=== PATIENT | female | born 2000 | race Caucasian/White ===

== ENCOUNTER 2019-01-31 08:52 | Emergency (ER) | payer OTHER ==
[~2019-01-31] VITALS: Ht 165.1 cm; Wt 80.1 kg
[2019-01-31] MEDS ORDERED: MULTTAB20 PO (09:11)
[2019-01-31] MEDS ORDERED: PANTOPRAZOLE 40MG INJ (PROTONIX) (C9113) IV ONE (09:15)
[2019-01-31] MEDS ORDERED: GI COCKTAIL 50ML BTL(HYOSCYAMINE/MAALOX/LIDOCAINE VISCOUS)(1:3:1) PO ONE (09:15)
[2019-01-31 09:37] LABS: BASO % 0.2 % (0.0-1.0); EOS % 0.4 % (0.0-3.0); HEMATOCRIT 39.5 % (36.0-47.0); HEMOGLOBIN 13.4 g/dl (12.0-15.5); LYMPH # 0.8 10^3/uL (1.5-6.5); MEAN CORPUSCULAR HGB CONC 33.9 g/dl (32.0-36.5); MEAN CORPUSCULAR VOLUME 88.6 fl (80.0-96.0); MONO # 0.7 10^3/uL (0.0-0.8); NEUTROPHILS # 6.6 10^3/uL (1.8-7.7); PLATELET COUNT, AUTOMATED 246 10^3/uL (150-450); RED BLOOD COUNT 4.46 10^6/uL (4.00-5.40); WHITE BLOOD COUNT 8.2 10^3/uL (4.0-10.0)
[2019-01-31 09:54] LABS: INR 0.98; PROTHROMBIN TIME 13.1 SECONDS (12.1-14.4)
[2019-01-31 09:55] LABS: PARTIAL THROMBOPLASTIN TIME 26.9 SECONDS (25.4-37.6)
[2019-01-31 09:57] LABS: D-DIMER QUANT 450.71 ng/ml (<500)
--- NOTE | 2019-01-31 10:11 | REP ---
Bilateral lower extremity Duplex Doppler venous ultrasound: Real time compression and duplex Doppler interrogation of the bilateral lower extremity deep venous system is performed. Bilaterally, the common femoral, superficial femoral and popliteal veins are fully compressible with transducer pressure and demonstrate normal spontaneous and phasic flow, without evidence of deep venous thrombosis. Impression: No evidence of deep venous thrombosis of the bilateral lower extremity femoral popliteal venous system. Electronically Signed by Gary Moe MD 01/31/2019 10:02 A
--- NOTE | 2019-01-31 10:16 | REP ---
OB ULTRASOUND: Real-time sonographic evaluation of the gravid uterus performed. There is a single living intrauterine gestation. The estimated gestational age is 8 weeks 3 days based on LMP, EDC 09/09/2019. Today's crown-rump length measurement of 21 mm is at the 72nd percentile indicating appropriate growth. heart rate 169 beats per minute. There is no subchorionic hemorrhage. No maternal adnexal region abnormality is seen. There is no evidence of ovarian torsion. Electronically Signed by Gary Moe MD 01/31/2019 04:17 P
[2019-01-31 10:31] LABS: ALT/SGPT 16 U/L (12-78); BILIRUBIN,DIRECT < 0.1 MG/DL (0.0-0.2); BILIRUBIN,TOTAL 0.3 MG/DL (0.2-1.0); BLOOD UREA NITROGEN 7 MG/DL (7-18); CALCIUM LEVEL 9.1 MG/DL (8.5-10.1); CARBON DIOXIDE LEVEL 22 MEQ/L (21-32); CHLORIDE LEVEL 101 MEQ/L (98-107); CK-MB VALUE MASS < 1.0 NG/ML (<3.6); CPK CREATINE PHOSPHOKINASE 49 U/L (26-192); CREATININE FOR GFR 0.65 MG/DL (0.55-1.30); GLOMERULAR FILTRATION RATE > 60.0 (>60); GLUCOSE, FASTING 87 MG/DL (70-100); HCG, SERUM QUANTITATIVE 70660 MIU/ML; LIPASE 58 U/L (73-393); MB/CK RELATIVE INDEX 2.04 (< OR =4); POTASSIUM SERUM 3.5 MEQ/L (3.5-5.1); SODIUM LEVEL 133 MEQ/L (136-145); TOTAL PROTEIN 7.8 GM/DL (6.4-8.2); TROPONIN I < 0.02 NG/ML (< 0.10)
[2019-01-31] MEDS ORDERED: ACETAMINOPHEN TAB 650MG DOSE (2X325MG) PO ONE (12:00)
[2019-01-31] MEDS ORDERED: REGL10TA6 PO (13:07)
[2019-01-31 13:30] VITALS: BP 97/58
--- NOTE | 2019-02-01 07:14 | ECGEPIP ---
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
== END 2019-01-31 13:39 | disposition home or self-care (01) ==
LOC: M ED 08:52
DX: O99.89 Other specified diseases and conditions complicating pregnancy, childbirth and the puerperium (principal); R07.9 Chest pain, unspecified; R06.02 Shortness of breath; R11.2 Nausea with vomiting, unspecified; Z3A.08 8 weeks gestation of pregnancy
CPT/HCPCS: 76801; 80048; 80076; 82550; 82553; 83690; 84484; 84702; 85025; 85379; 85610; 85730; 86850; 86900; 86901; 93005; 93041; 93970; 93976; 94760; 96374; 99285; C9113

== ENCOUNTER 2019-08-02 18:13 | Outpatient (CLI) | payer OTHER ==
[~2019-08-02] VITALS: Ht 165.1 cm; Wt 105.3 kg
[~2019-08-02 18:13] MED LIST: MULTTAB20 PO; REGL10TA6 PO
[2019-08-02 18:40] VITALS: BP 125/75
[2019-08-02] MEDS ORDERED: CALC500C27 PO (18:44)
[2019-08-02] MEDS ORDERED: ZOFR4TAB16 PO (18:44)
[2019-08-02 18:50] VITALS: BP 125/75
--- NOTE | 2019-08-02 20:08 | IPNPDOC ---
Text Note Date of Service The patient was seen on 08/02/19. NOTE patient is a 19 yo G1 @34+4wks gestation presents with concern for right upper back pain x many days. denies ctx/lof/vb. +FM. vitals: norml NAD back: palpable knot at paraspinus muscle on right side causing tenderness. worse with bending forward and improves with bending backwards abd: nd, soft, nt, gravid le: bilateral symmetrical non pitting edema. fht: 145/mod angel/pos accel/no decel toco: quiet a/p patient at 34+4wks gestation with back pain, musculoskeletal related. discussed with patient regarding stretching, warm compress. patient declined physical therapy consult. return precautions given. f/u with clinic as scheduled. DO cecy VS,Ronnie, I+O VS, Ronnie, I+O Vital Signs Date Time Temp Pulse Resp B/P (MAP) Pulse Ox O2 Delivery O2 Flow Rate FiO2 08/02/19 18:50 98.4 91 18 125/75 (92) FERNIE PETERS DO Aug 02, 2019 19:33
== END 2019-08-02 19:45 | disposition home or self-care (01) ==
LOC: M LDO 18:13
PROVIDERS: ATTEND Obstetrics & Gynecology
DX: O26.893 Other specified pregnancy related conditions, third trimester (principal); Z3A.34 34 weeks gestation of pregnancy; M54.89 Other dorsalgia
CPT/HCPCS: 59025; G0378; G0463

== ENCOUNTER 2019-09-16 22:05 | Inpatient (IN) | payer OTHER ==
[~2019-09-16] VITALS: Ht 165.1 cm; Wt 112.9 kg
[~2019-09-16 22:05] MED LIST changes: +CALC500C27 PO; +ZOFR4TAB16 PO
[2019-09-16 22:25] VITALS: BP 136/81
[2019-09-16] MEDS ORDERED: UNIS25TA3 PO (22:27)
--- NOTE | 2019-09-16 23:32 | HPEPDOC ---
Obstetrical History & Physical General Date of Admission Sep 16, 2019 at 22:05 History of Present Illness Patient is a 19 yo G1 @ 41 wks gestation presents for IOL for pending postdates. patient denies ctx/lof/vb. +FM. 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 Past Medical History Surgical History: Denies/None Family History Significant Family History: No pertinent family hx Social History Marital Status: Family situation: Spouse/partner home Psychosocial History: No pertinent psych hx * Smoker: non-smoker Alcohol: Denies Drugs: denies Imunizations Tdap status: current Influenza Status: current Allergies Coded Allergies: No Known Drug Allergies (Verified Allergy, Unknown, 01/31/19) Medications Scheduled Doxylamine Succinate (Unisom Sleep Aid) 25 Mg Tablet, 1 TAB PO QPM No122/Iron/Folic Acid ( Multi Tablet) 1 Each Tablet, 1 TAB PO DAILY Scheduled PRN Calcium Carbonate (Antacid) 200 Mg Tab.chew, 500 MG PO PRN PRN for INDIGESTION Ondansetron HCl (Zofran) 4 Mg Tablet, 4 MG PO PRN PRN for NAUSEA Physical Examination Physical Examination GENERAL: Alert and oriented times three. BREAST: . ABDOMEN: Gravid and non-tender to touch. FETUS: cephalic by Josh. HEART RATE: Regular rate and rhythm. LUNGS: Clear to auscultation (CTA). EXTREMITIES: non pitting edema to knees, symmetrical, no erythema/tenderness. EFW: 3900gm Vital Signs/I&O Vital Signs Date Time Temp Pulse Resp B/P (MAP) Pulse Ox O2 Delivery O2 Flow Rate FiO2 09/16/19 22:25 90 16 136/81 (99) Laboratory Data 24H LABS Laboratory Tests 2 09/16/19 22:14: Serology Scanned Report Hepatitis B Testing Pertinent Laboratoy Data Blood Type: A+ RBC Antibody Screen: Negative HIV: Negative Hepatitis B: Negative Rapid Plasma Reagin: Nonreactive Rubella: Immune Chlamydia/Gonorrhea: Negative Group B Streptococcus: Negative Anatomy Ultrasound Placenta Location: Anterior Normal Anatomy: Yes Placenta Previa: No Vaginal Examination Dilation: 1cm Effacement: 30% Station: -3 Cervical Consistency: Firm Cervical Position: Posterior Presentation: Cephalic presentation Position: Vertex (occiput) Assessment Heart Rate (FHR): 140 Variability: Moderate Accelerations: Positive Decelerations: None Tocometer Contractions: No Assessment/Plan Assessment patient is a 19 yo G1 @41wks gestation admit to l&d for IOL. Counseled patient on different methods of cervical ripening and and induction of labor with hampton bulb/oxytocin/arom as indicated. Discussed external monitoring and internal monitoring as needed. Use of IV antibiotics for s/s of infection. Risk of bleeding requiring blood transfusion and associated risk of blood transfusion discussed. Risk of emergency delivery discussed. Possible need for use of vacuum and forceps as well as episiotomy discussed. Plan Admit and orient. 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 Diet: regular Group B Streptococcus (GBS) [negative]. Labs and intravenous (IV) per unit protocol. Counseled on Pitocin and induction of labor (IOL). hampton bulb placed with 80cc of saline in cervical side. add buccal cytotec 25mcg q 4hrs as long as patient is not having regular q 3mins contractions. Anticipate [normal spontaneous delivery ()]. C-S as appropriate. FERNIE PETERS DO Sep 16, 2019 23:32
[2019-09-16] MEDS: miSOPROStol 25 MCG 1/4 TAB (S0191) SL SCH (23:46)
[2019-09-16] MEDS: LR 1,000 ML IV SCH (23:46)
[2019-09-17] VITALS (52 sets, daily range): BP systolic 104–208; BP diastolic 53–118
[2019-09-17 00:17] LABS: HEMATOCRIT 34.3 % (36.0-47.0); HEMOGLOBIN 11.4 g/dl (12.0-15.5); MEAN CORPUSCULAR HEMOGLOBIN 31.5 pg (27.0-33.0); MEAN CORPUSCULAR HGB CONC 33.2 g/dl (32.0-36.5); MEAN CORPUSCULAR VOLUME 94.8 fl (80.0-96.0); PLATELET COUNT, AUTOMATED 164 10^3/uL (150-450); RED BLOOD COUNT 3.62 10^6/uL (4.00-5.40); WHITE BLOOD COUNT 8.8 10^3/uL (4.0-10.0)
[2019-09-17] MEDS ORDERED: NALBUPHINE HCL 10 MG/ML AMP (J2300) IM ONE (01:30)
[2019-09-17] MEDS ORDERED: NALBUPHINE HCL 10 MG/ML AMP (J2300) IV ONE (01:30)
[2019-09-17] MEDS ORDERED: PROMETHAZINE INJ 25 MG/ML VIAL (J2550) IV ONE (01:30)
[2019-09-17] MEDS: miSOPROStol 25 MCG 1/4 TAB (S0191) SL SCH ×2 (03:45→08:00)
[2019-09-17] MEDS: LR 1,000 ML IV SCH ×4 (07:09→21:00)
[2019-09-17] MEDS ORDERED: OXYTOCIN DRIP 30 UNITS in IV 1 EA IV SCH (11:30)
[2019-09-17] MEDS ORDERED: FENTANYL 2MCG/ML ROPIVACAINE 0.2% IN 0.9% NACL 100ML IVBAG As Ordered ONE (14:13)
[2019-09-17] MEDS ORDERED: REFRIGERATOR IV KEYS XX PRN ×2 (15:15→17:00)
[2019-09-17] MEDS ORDERED: FENTANYL/ROPIVACAINE/NACL BAG 100 ML EPIDURAL SCH ×2 (15:15→17:00)
[2019-09-17] MEDS ORDERED: LACTATED RINGER'S 1000 ML IV PRN (15:15)
[2019-09-17] MEDS ORDERED: NALOXONE INJ 0.4 MG/1 ML VIAL (J2310) IV PRN ×4 (15:15→18:25)
[2019-09-17] MEDS ORDERED: EPIDURAL/PCA KEYS XX PRN ×2 (15:15→17:00)
[2019-09-17] MEDS ORDERED: diphenhydrAMINE INJ 50MG/ML VIAL (J1200) IV PRN ×3 (15:15→18:25)
[2019-09-17] MEDS ORDERED: ePHEDrine SULFATE 25 MG/5 ML(5MG/ML) SYRINGE IV PRN ×2 (15:15→17:00)
[2019-09-17] MEDS ORDERED: EPIDURAL COMMENT XX SCH ×2 (15:15→17:00)
[2019-09-17] MEDS ORDERED: ONDANSETRON 4MG/2ML VIAL (J2405) IV PRN ×5 (15:15→19:30)
[2019-09-17] MEDS ORDERED: ePHEDrine SULFATE 25 MG/5 ML(5MG/ML) SYRINGE As Ordered ONE (16:27)
[2019-09-17] MEDS ORDERED: EPINEPHrine INJ 1 MG/ML 1ML VIAL As Ordered ONE (17:16)
[2019-09-17] MEDS ORDERED: LIDOCAINE PRES-FREE 2% 10ML AMP As Ordered ONE (17:16)
[2019-09-17] MEDS ORDERED: OXYTOCIN 30 UNITS IN 0.9% NaCl 500ML IV BAG (J2590) As Ordered ONE (17:17)
[2019-09-17] MEDS ORDERED: ceFAZolin 2 GM/D5W 50 ML IV BAG (J0690 PER 500MG) As Ordered ONE (17:19)
[2019-09-17] MEDS ORDERED: dexameTHASONE 4 MG/ML 1ML VIAL (J1100) As Ordered ONE (17:19)
[2019-09-17] MEDS ORDERED: AZITHROMYCIN INJ 500MG VIAL (J0456) As Ordered ONE (17:20)
[2019-09-17] MEDS ORDERED: BICITRA 30ML SOLN UDC As Ordered ONE (17:20)
[2019-09-17] MEDS ORDERED: BICITRA 30ML SOLN UDC PO ONE (17:30)
[2019-09-17] MEDS ORDERED: ceFAZolin SOD 2 GM in IV 1 EA IV ONE (17:30)
[2019-09-17] MEDS ORDERED: AZITHROMYCIN INJ 500 MG, VIAL MATE ADAPTER 1 EACH in D5W 250 ML IV ONE (17:30)
--- NOTE | 2019-09-17 17:41 | IPNPDOC ---
Text Note Date of Service The patient was seen on 09/17/19. NOTE Decision for Jodi is a 19yo undergoing IOL for late term gestation at 41w1d. She had cytotec x2 doses and hampton cervical balloon which came out around noon. She was on pitocin, had SROM (clear) around 1530 and progressed to 6cm. Since the time of SROM, she has had repetitive variable FHR decels. She had amnioinfusion after IUPC placement, pitocin was turned off, and she has continued to have these variable decels. We cannot augment her labor for persistent Cat II FHRT. I repeated SCE and it is /-3. The infant is not in the pelvis. Significantly, she started with BMI 28 and had a 74lb weight gain, so this is likely a very large . I counseled Jodi on my recommendation for section for persistent Cat II FHRT with inability to augment and she is amenable. Nursing team and anesthesia aware of plan. Anceph 2g IV x 1 Azithromycin 500mg x1 Bicitra Will proceed to OR when available. Dr. Marissa Anderson MD VS,Ronnie, I+O VSRonnie, I+O Laboratory Tests 09/16/19 23:34 Vital Signs Date Time Temp Pulse Resp B/P (MAP) Pulse Ox O2 Delivery O2 Flow Rate FiO2 09/17/19 16:54 83 107/55 (72) 09/17/19 16:39 98.2 20 09/17/19 15:22 98 Room Air I&O- Last 24 Hours up to 6 AM 09/17/19 06:00 Intake Total 750 ml Balance 750 ml Marissa Anderson MD Sep 17, 2019 17:41
[2019-09-17] MEDS ORDERED: ONDANSETRON 4MG/2ML VIAL (J2405) As Ordered ONE (17:51)
[2019-09-17] MEDS ORDERED: FAMOTIDINE/NS 20 MG/50 ML BAG (S0028) As Ordered ONE (17:56)
[2019-09-17] MEDS ORDERED: MORPHINE PRES-FREE INJ 10 MG/10 ML VIAL (J2274) As Ordered ONE (18:03)
[2019-09-17] MEDS ORDERED: METOCLOPRAMIDE INJ 10MG/2ML VIAL (J2765) As Ordered ONE (18:19)
[2019-09-17] MEDS ORDERED: METOCLOPRAMIDE INJ 10MG/2ML VIAL (J2765) IV PRN (18:25)
[2019-09-17] MEDS ORDERED: NALBUPHINE HCL 10 MG/ML AMP (J2300) IV PRN ×2 (18:25→19:30)
[2019-09-17] MEDS ORDERED: PROPOFOL 200 MG/20 ML VIAL As Ordered ONE (18:28)
[2019-09-17 18:36] LABS: CORD GAS ABE A -2.7; CORD GAS HCO3 A 25.3 MEQ/L; CORD GAS O2 SAT A 20.1 %; CORD GAS PCO2 A 55.5 mmHg; CORD GAS PH A 7.276 UNITS; CORD GAS PO2 A 13.2 mmHg; CORD GAS SBC A 20.2 MEQ/L
[2019-09-17 18:37] LABS: VENOUS O2 SATURATION 50.6 % (60.0-80.0); VENOUS PARTIAL PRESSURE CO2 44.3 mmHg (38.0-50.0); VENOUS PARTIAL PRESSURE O2 22.8 mmHg (30.0-50.0); VENOUS PH 7.333 UNITS (7.330-7.430); VENOUS STANDARD HCO3 20.7 MEQ/L; VENOUS TOTAL CO2 24.4 MEQ/L (24.0-28.0)
[2019-09-17] MEDS ORDERED: PERCOCET 5MG/325MG TAB PO PRN ×2 (19:15)
[2019-09-17] MEDS ORDERED: KETOROLAC 30 MG/ML VIAL (J1885) IV PRN (19:30)
[2019-09-17] MEDS ORDERED: fentaNYL 100 MCG/2 ML INJECTION (J3010) IV PRN (19:30)
[2019-09-17] MEDS ORDERED: KETOROLAC 30 MG/ML VIAL (J1885) IV SCH (20:00)
[2019-09-17] MEDS ORDERED: MEASLES,MUMPS,RUBELLA VACCINE INJ (MMR-II) (90707) SC SCH (20:00)
[2019-09-17] MEDS ORDERED: RHOGAM 300 MCG (1500 IU) INJ (J2790) IM SCH (20:00)
[2019-09-17] MEDS: DOCUSATE SODIUM 100 MG CAP PO SCH (21:00)
[2019-09-17] MEDS: KETOROLAC 30 MG/ML VIAL (J1885) IV SCH (21:35)
[2019-09-18] VITALS: BP 121/67
[2019-09-18] MEDS: KETOROLAC 30 MG/ML VIAL (J1885) IV SCH ×3 (03:22→15:04)
[2019-09-18 04:00] VITALS: BP 121/71
[2019-09-18] MEDS: LR 1,000 ML IV SCH (04:11)
[2019-09-18 07:28] LABS: HEMATOCRIT 30.1 % (36.0-47.0); HEMOGLOBIN 9.9 g/dl (12.0-15.5); MEAN CORPUSCULAR HEMOGLOBIN 31.2 pg (27.0-33.0); MEAN CORPUSCULAR HGB CONC 32.9 g/dl (32.0-36.5); PLATELET COUNT, AUTOMATED 153 10^3/uL (150-450); RED BLOOD COUNT 3.17 10^6/uL (4.00-5.40); WHITE BLOOD COUNT 19.6 10^3/uL (4.0-10.0)
--- NOTE | 2019-09-18 08:04 | IPNPDOC ---
Progress Note Date of Service: Sep 18, 2019 Day#: 1 Progress Note PPD 1 SUBJECT: Jodi is a 19yo [id number] s/p uncomplicated PLTCS at 1800 on 24 Dec for NRFHT with inability to augment after undergoing IOL for LTG at 41w1d, doing well day # 1. She has been ambulating without lightheadedness, has hampton catheter in place draining clear yellow urine and has been tolerating c lear liquids without nausea/vomiting. Breast feeding without issue. Reports lochia is like a normal period. She denies f/c/CP/SOB. OBJECTIVE: VITAL SIGNS: Within normal limits, afebrile. Alert and oriented times three. Abdomen: Fundus firm at U-2. Soft, NTTP with no rebound/guarding. Pfannenstiel incision has clean/dry dressing overlying. Extremities: no pain with palpation of calves UOP >50ml/hr Labs: admission H/H: 11.4/34.3 post-op H/H 9.9/30.1 ASSESSMENT: Jodi is a 19yo [id number] s/p uncomplicated PLTCS at 1800 on 24 Dec for NRFHT with inability to augment after undergoing IOL for LTG at 41w1d, doing well day # 1. Vitals within normal limits, afebrile, hemodynamically stable with no evidence of infection. PLAN: 1. Routine /post-op care 2. Toradol (x24hr then ibuprofen) and percocet for pain. 3. Regular diet 4. Hampton catheter to be removed 24hr post-op with 4hr due to void 5. Ok to shower this evening and take off outer bandage 6. SCDs while in bed, encourage use of IS 7. Encourage breast feeding and ambulation. Dr. Marissa Anderson MD VS, I&O, 24H, [facility] Vital Signs/I&O Vital Signs Date Time Temp Pulse Resp B/P (MAP) Pulse Ox O2 Delivery O2 Flow Rate FiO2 09/18/19 04:00 97.9 80 18 121/71 (88) 96 Room Air I&O- Last 24 Hours up to 6 AM 09/18/19 06:00 Intake Total 2465.6 ml Output Total 2350 ml Balance 115.6 ml Laboratory Data 24H LABS Laboratory Tests 2 09/17/19 18:10: Blood Gas Bicarbonate Standard 20.7, Venous Blood pH 7.333, Venous Blood Partial Pressure CO2 44.3, Venous Blood Partial Pressure O2 22.8L, Venous Blood Total Carbon Dioxide 24.4, Venous Blood HCO3 23.0, Venous Blood Oxygen Saturation 50.6L, Venous Blood Base Excess -3.0L 09/17/19 18:17: Cord Arterial Blood pH 7.276, Cord Arterial Blood PCO2 55.5, Cord Arterial Blood PO2 13.2, Cord Arterial Blood HCO3 25.3, Cord Arterial Blood Total CO2 27.0, Cord Arterial Blood Base Excess -2.7, Cord Arterial Base Excess (Standard 20.2, Cord Arterial Bld Oxygen Saturation 20.1 09/18/19 07:02: Nucleated Red Blood Cells % (auto) 0.0 CBC/BMP Laboratory Tests 09/18/19 07:02 Marissa Anderson MD Sep 18, 2019 08:04
[2019-09-18] MEDS: PRENATAL VITAMINS CHEWABLE TABLET PO SCH (09:19)
[2019-09-18] MEDS: DOCUSATE SODIUM 100 MG CAP PO SCH ×2 (09:19→23:14)
[2019-09-18 10:00] VITALS: BP 122/73
[2019-09-18 14:00] VITALS: BP 118/67
[2019-09-18 18:00] VITALS: BP 122/66
[2019-09-18 22:00] VITALS: BP 109/64
[2019-09-18] MEDS: IBUPROFEN 800 MG TAB PO SCH (23:13)
[2019-09-18] MEDS ORDERED: IBUPROFEN 800 MG TAB PO SCH (23:30)
[2019-09-19 02:00] VITALS: BP 123/73
[2019-09-19 06:00] VITALS: BP 119/64
--- NOTE | 2019-09-19 08:22 | IPNPDOC ---
Progress Note Date of Service: Sep 19, 2019 Day#: 2 Progress Note PPD 2 SUBJECT: Jodi is a 19yo [id number] s/p uncomplicated PLTCS at 1800 on 24 Dec for NRFHT with inability to augment after undergoing IOL for LTG at 41w1d, doing well day # 2. She has been ambulating without lightheadedness, spontaneously voiding without issue and has been tolerating regular diet without nausea/vomiting. She has only been taking motrin, was afraid to take percocet in case it caused nausea, so pain has not been as well controlled as it could be. Breast feeding without issue. Reports lochia is like a normal period. She denies f/c/CP/SOB. OBJECTIVE: VITAL SIGNS: Within normal limits, afebrile. Alert and oriented times three. Abdomen: Fundus firm at U-2. Soft, NTTP with no rebound/guarding. Pfannenstiel incision has steri strips overlying and has no erythema/induration/drainage Extremities: no pain with palpation of calves Labs: admission H/H: 11.4/34.3 post-op H/H 9.9/30.1 ASSESSMENT: Jodi is a 19yo [id number] s/p uncomplicated PLTCS at 1800 on 24 Dec for NRFHT with inability to augment after undergoing IOL for LTG at 41w1d, doing well day # 2. Vitals within normal limits, afebrile, hemodynamically stable with no evidence of infection. PLAN: 1. Routine /post-op care 2. Ibuprofen and percocet for pain. I encouraged her to try the percocet to obtain good pain control. 3. Regular diet 4. SCDs while in bed, encourage use of IS 5. Encourage breast feeding and ambulation. Dr. Marissa Anderson MD VS, I&O, 24H, Fishbone Vital Signs/I&O Vital Signs Date Time Temp Pulse Resp B/P (MAP) Pulse Ox O2 Delivery O2 Flow Rate FiO2 09/19/19 06:00 97.3 86 19 119/64 (82) 100 Room Air I&O- Last 24 Hours up to 6 AM 09/19/19 06:00 Intake Total 600 ml Output Total 1600 ml Balance -1000 ml Marissa Anderson MD Sep 19, 2019 08:22
[2019-09-19] MEDS: DOCUSATE SODIUM 100 MG CAP PO SCH ×2 (08:28→20:57)
[2019-09-19] MEDS: IBUPROFEN 800 MG TAB PO SCH ×3 (08:28→23:17)
[2019-09-19] MEDS: PRENATAL VITAMINS CHEWABLE TABLET PO SCH (08:28)
[2019-09-19 10:00] VITALS: BP 135/81
[2019-09-19 14:00] VITALS: BP 120/73
[2019-09-19 18:36] VITALS: BP 121/75
[2019-09-19 22:00] VITALS: BP 116/63
[2019-09-20 01:29] VITALS: BP 117/66
--- NOTE | 2019-09-20 05:35 | IPNPDOC ---
Progress Note Date of Service: Sep 20, 2019 Day#: 3 Progress Note POD 3 SUBJECT: Jodi is a 19yo [id number] s/p uncomplicated PLTCS at 1800 on 24 Dec for NRFHT with inability to augment after undergoing IOL for LTG at 41w1d, doing well day # 3. She has been ambulating without lightheadedness, spontaneously voiding without issue and has been tolerating regular diet without nausea/vomiting. She took the percocet yesterday and had better pain control. Breast feeding without issue. Reports lochia is like a normal period. She denies f/c/CP/SOB. OBJECTIVE: VITAL SIGNS: Within normal limits, afebrile. Alert and oriented times three. Abdomen: Fundus firm at U-2. Soft, NTTP with no rebound/guarding. Pfannenstiel incision has steri strips overlying and has no erythema/induration/drainage Extremities: no pain with palpation of calves Labs: admission H/H: 11.4/34.3 post-op H/H 9.9/30.1 ASSESSMENT: Jodi is a 19yo [id number] s/p uncomplicated PLTCS at 1800 on 24 Dec for NRFHT with inability to augment after undergoing IOL for LTG at 41w1d, doing well day # 3. Vitals within normal limits, afebrile, hemodynamically stable with no evidence of infection. PLAN: 1. Discharge to home today 2. Ibuprofen and percocet for pain, colace for bowel regimen. 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 3. Regular diet 4. No heavy lifting and vaginal rest for 6 weeks 5. Discussed return precautions: fevers/chills, signs of wound infection, increasing abdominal pain, pain/redness of breasts, depression, or anything else concerning 6. Post-op visit at [address] Anderson in [facility] Dr. Marissa Anderson MD VS, I&O, 24H, Fishbone Vital Signs/I&O Vital Signs Date Time Temp Pulse Resp B/P (MAP) Pulse Ox O2 Delivery O2 Flow Rate FiO2 09/20/19 01:29 97.7 82 18 117/66 (83) 98 Room Air Marissa Anderson MD Sep 20, 2019 05:35
[2019-09-20] MEDS ORDERED: PERCOCET PO (05:37)
[2019-09-20] MEDS ORDERED: IBUP80TA PO (05:37)
[2019-09-20] MEDS ORDERED: DOCU100C16 PO (05:37)
--- NOTE | 2019-09-20 05:41 | DS.PDOC ---
Discharge Summary General Date of Admission Sep 16, 2019 at 22:05 Date of Discharge Sep 20, 2019 Attending Physician: Marissa Anderson MD Discharge Summary PROCEDURES PERFORMED DURING STAY: primary low transverse section ADMITTING DIAGNOSES: 1. Late term gestation induction of labor DISCHARGE DIAGNOSES: 1. Late term gestation induction of labor 2. Development of NRFHT with inability to augment remote from delivery COMPLICATIONS/CHIEF COMPLAINT: Induction. HISTORY OF PRESENT ILLNESS/HOSPITAL COURSE: Jodi is a 19yo [id number] s/p uncomplicated PLTCS at 1800 on Aug for NRFHT with inability to augment after undergoing IOL for LTG at 41w1d. She had a benign course. At time of discharge, vitals were within normal limits, she was afebrile, hemodynamically stable with no evidence of infection. DISCHARGE MEDICATIONS: Please see below. ALLERGIES: Please see below. PHYSICAL EXAMINATION ON DISCHARGE: VITAL SIGNS: Within normal limits, afebrile. Alert and oriented times three. Abdomen: Fundus firm at U-2. Soft, NTTP with no rebound/guarding. Pfannenstiel incision has steri strips overlying and has no erythema/induration/drainage Extremities: no pain with palpation of calves LABORATORY DATA: Please see below. admission H/H: 11.4/34.3 post-op H/H 9.9/30.1 DIET: regular DISPOSITION: Home DISCHARGE PLAN/INSTRUCTIONS: 1. Discharge to home today 2. Ibuprofen and percocet for pain, colace for bowel regimen. 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 3. Regular diet 4. No heavy lifting and vaginal rest for 6 weeks 5. Discussed return precautions: fevers/chills, signs of wound infection, increasing abdominal pain, pain/redness of breasts, depression, or anything else concerning 6. Post-op visit at [address] Anderson in [facility] DISCHARGE CONDITION: Stable TIME SPENT ON DISCHARGE: Greater than [address] Marissa Anderson MD Vital Signs/I&Os Vital Signs Date Time Temp Pulse Resp B/P (MAP) Pulse Ox O2 Delivery O2 Flow Rate FiO2 09/20/19 01:29 97.7 82 18 117/66 (83) 98 Room Air Discharge Medications Scheduled Docusate Sodium (Docusate Sodium) 100 Mg Capsule, 100 MG PO BID Doxylamine Succinate (Unisom Sleep Aid) 25 Mg Tablet, 1 TAB PO QPM, (Reported) Ibuprofen (Ibuprofen) 800 Mg Tablet, 800 MG PO Q8H No122/Iron/Folic Acid ( Multi Tablet) 1 Each Tablet, 1 TAB PO DAILY, (Reported) Scheduled PRN Calcium Carbonate (Antacid) 200 Mg Tab.chew, 500 MG PO PRN PRN for INDIGESTION, (Reported) Ondansetron HCl (Zofran) 4 Mg Tablet, 4 MG PO PRN PRN for NAUSEA, (Reported) Oxycodone/Acetaminophen (Oxycodone-Acetaminophen 5-325) 1 Each Tablet, 2 TAB PO Q6H PRN for SEVERE PAIN (PS 8-10) Allergies Coded Allergies: No Known Drug Allergies (Verified Allergy, Unknown, 01/31/19) Marissa Anderson MD Sep 20, 2019 05:41
[2019-09-20 05:55] VITALS: BP 121/74
[2019-09-20] MEDS: PRENATAL VITAMINS CHEWABLE TABLET PO SCH (07:40)
[2019-09-20] MEDS: IBUPROFEN 800 MG TAB PO SCH (07:40)
[2019-09-20] MEDS: DOCUSATE SODIUM 100 MG CAP PO SCH (07:40)
--- NOTE | 2019-09-20 18:36 | RO ---
DATE OF PROCEDURE: 09/17/2019 PREOPERATIVE DIAGNOSIS: Induction of labor for late term gestation. POSTOPERATIVE DIAGNOSIS: Induction of labor for late term gestation and nonreassuring heart tracing with persistent category II tracing remote from delivery having inability to augment. SURGEON: DR. Marissa Anderson SUPPLIES PACKER: Dr. Fowler, audiology assistant role: Exposure/retraction, assisted with delivery of the baby and subsequent closure of tissue layers. CLINICAL SERVICE: Obstetrics. INDICATION FOR OPERATION: Jodi is a 19-year-old G1 now P1 0-0-1 who was admitted for a scheduled induction of labor for late term gestation at 41 weeks. She progressed in the course of the induction to 6 cm but developed a persistent category II heart rate tracing with variable heart rate decels and there was inability to augment her labor any further. MATERIAL FORWARDED TO THE LAB: Cord gases, pH arterial 7.276, base excess negative 2.7, pH venous 7.333, base excess -3. DESCRIPTION OF FINDINGS: Male infant in OT presentation. 9 and 9, weight 3770 grams or 8 pounds 5 ounces. Normal appearing uterus, fallopian tubes and ovaries. INFECTION CLASSIFICATION: 2. ESTIMATED BLOOD LOSS: 800 mL URINE OUTPUT: 100 mL IV FLUIDS: 900 mL lactated Ringer. OPERATION PERFORMED: Primary low transverse section. DESCRIPTION OF OPERATION: After obtaining informed consent Jodi was taken to the operating room. She had epidural previously placed and had a Prado catheter in place. Bilateral sequential compression devices were placed. She was prepped and draped in normal routine fashion and placed in dorsal supine position with a left lateral tilt. Time-out was performed to confirm patient name, date of procedure and indication of the team was in agreement. She received 2 grams of IV Ancef prophylactically in addition to 500 mg of azithromycin IV. Epidural anesthesia was found to be adequate. Using an Allis clamp Pfannenstiel skin incision was made with a scalpel and carried through to the underlying layer of fascia. Fascia was incised in the midline incision was extended laterally with Astorga scissors. The superior and inferior aspects of the fascial incision were grasped with Brittney clamps, elevated the underlying rectus muscles were dissected off bluntly and sharply. Peritoneum was entered digitally and the rectus muscles were in the midline. Peritoneal incision was extended superiorly and inferiorly with good visualization of the bladder. Bladder blade was inserted and the vesicouterine peritoneum was identified, grasped with pickups and entered sharply with Metzenbaum scissors. The incision was extended laterally and the bladder flap was created digitally. The bladder blade was reinserted and the lower uterine segment was scored in a transverse fashion with a scalpel. The uterus was entered bluntly and the incision was extended with traction. Bladder blade was removed and infant's head was elevated to level of the incision. Fundal pressure was applied in the head was delivered atraumatically in the OT position. Anterior shoulder, posterior shoulder and corpus were delivered without difficulty. The only thing notable was cord around the shoulder. Nose and mouth were suctioned with bulb suction and the cord was clamped times two and cut the was handed off to the awaiting nursing team. Cord gases were obtained and as noted above. Placenta was then removed with traction on the umbilical cord and uterine massage and the uterus was exteriorized and cleared of all clot and debris. The uterine incision was repaired with 0 Vicryl suture in a running locking fashion. There were a couple areas of oozing after that and so a few [id number] were placed using 0 Vicryl suture and there was hemostasis noted a second layer of 0 Monocryl was used to close the hysterotomy incision in an imbricating fashion. The uterine incision was inspected and hemostasis was noted. Posterior cul-de-sac was irrigated and the uterus was returned the abdomen. Gutters were cleared of all clot. Peritoneum was closed using 3-0 Vicryl suture in a running fashion. Fascia was reapproximated using 0 Vicryl suture in a running fashion. Subcutaneous tissue was copiously irrigated. Gayle fascia was reapproximated using 3-0 Vicryl suture in a running fashion. Skin edges were reapproximated using three inverted interrupted stitches using 3-0 Vicryl suture followed by a running subcuticular stitch using 4-0 Monocryl suture. The incision was cleaned using a wet lap and dried with a dry lap. Steri-Strips were applied in the usual fashion perpendicular to the Pfannenstiel incision. Telfa was then layered on top of the Steri-Strips followed by a dry sterile towel. Surgical drapes were removed. Sterile towel was removed with a pressure dressing then applied over the entire surgical incision. Vagina was cleared of all blood clot without active bleeding noted. Fundus was firm at umbilicus. All counts were correct times two. The patient tolerated the procedure well and there were no complications. The patient was taken to the recovery room on labor delivery in stable condition.
== END 2019-09-20 12:20 | disposition home or self-care (01) | DRG 773 ==
LOC: M LDI 22:05 → M OBS 09-17 20:32
PROVIDERS: ADMIT Obstetrics & Gynecology; ATTEND Obstetrics & Gynecology
PROC: 3E033VJ Introduction of Other Hormone into Peripheral Vein, Percutaneous Approach (ICD-10-PCS; 2019-09-17)
PROC: 10D00Z1 Extraction of Products of Conception, Low, Open Approach (ICD-10-PCS; principal; 2019-09-17 17:30)
DX: O48.0 Post-term pregnancy (principal); Z37.0 Single live birth; Z3A.41 41 weeks gestation of pregnancy; O76 Abnormality in fetal heart rate and rhythm complicating labor and delivery